=== PATIENT | male | born 1975 | race American Indian/Alaskan Native ===

== ENCOUNTER 2016-09-20 12:49 | Emergency (ER) | payer MEDICARE ==
[2016-09-20 13:35] LABS: Basophils % (Auto) 1.6 % (0.0-1.8); Eosinophils % (Auto) 4.6 % (0.0-4.3); Hemoglobin 14.3 gm/dl (11.8-15.2); Mean Corpuscular HGB Conc 34 % (32-34); Mean Corpuscular Hemoglobin 31 pg (28-32); Mean Corpuscular Volume 91 fl (84-94); Red Blood Count 4.63 M/mm3 (3.65-5.03); Red Cell Distribution Width 14.7 % (13.2-15.2)
[2016-09-20 13:37] LABS: Platelet Count 129 K/mm3 (140-440)
[2016-09-20 13:46] LABS: Anion Gap 15 mmol/L; BUN/Creatinine Ratio 11.53; Blood Urea Nitrogen 15 mg/dL (9-20); Calcium 8.7 mg/dL (8.4-10.2); Carbon Dioxide 28 mmol/L (22-30); Chloride 96.8 mmol/L (98-107); Glucose 97 mg/dL (75-100); Potassium 3.2 mmol/L (3.6-5.0); Sodium 137 mmol/L (137-145)
[2016-09-20] MEDS ORDERED: COREG PO ONE (14:08)
--- NOTE | 2016-09-20 14:24 | XRay Report ---
CHEST 2 VIEWS INDICATION: Shortness of breath. COMPARISON: 04/08/2016 FINDINGS: PA and lateral chest radiographs demonstrate improved early congestive appearance with lung markings less prominent. Now normal cardiomediastinal silhouette as well. No large pleural effusions or overt CHF. Minimal fluid or thickening along the major fissures may again be present. Intact bones. CONCLUSION: Interval radiographic improvement without significant acute chest process, as described. Please correlate. Thank you for the opportunity to participate in this patient's care.
[2016-09-20] MEDS ORDERED: PROCARDIA XL PO ONE (15:00)
[2016-09-20] MEDS ORDERED: TORADOL IM ONE (15:32)
--- NOTE | 2016-09-20 15:55 | Admit Criteria Form ---
<JOHN THOMAS - Last Filed: 09/20/16 15:54> Admission Criteria Documentation: HYPERTENSION Clinical Indications for Admission to Inpatient Care ( Place "X" for any and all applicable criteria): Admission is indicated for ANY ONE of the following(1)(2)(3)(4): [ ]I. Hypertensive emergency, with evidence of acute and progressing target organ disease as indicated by ANY ONE of the following: [ ]a) Hypertensive encephalopathy (eg, confusion, altered mental status) [ ]b) Cerebral infarction [ ]c) Intracranial hemorrhage [ ]d) Myocardial ischemia or infarction [ ]e) Pulmonary edema [ ]f) Aortic dissection [ ]g) Seizure [ ]h) Acute renal insufficiency [ ]i) Papilledema [ ]j) Microangiopathic hemolytic anemia [ ]II. Adrenergic crisis (eg, severe hypertension due to pheochromocytoma crisis, cocaine or amphetamine intoxication, or clonidine withdrawal) [X]III. Severe hypertension (SBP greater than 180 mmHg or DBP greater than 110 mmHg or greater than the 95th percentile for age, gender, and height in pediatric patients) that cannot be controlled (eg, to SBP less than 160 mmHg and DBP less than 100 mmHg in adults) by treatment with oral medication in emergency department or observation care Extended stay beyond goal length of stay may be needed for(11)(12)(13): [ ]a) Persistent hypertensive encephalopathy [ ]b) Continuation of pulmonary edema [ ]c) Recurring or persistent severe hypertension [ ]d) Target organ damage (eg, angina, stroke, aortic dissection) [ ]e) Associated renal insufficiency The original [employer] content created by [employer] has been revised. The portions of the content which have been revised are identified through the use of italic text or in bold, and [employer] [facility] [employer] has neither reviewed nor approved the modified material. All other unmodified content is copyright [employer]. Please see references footnoted in the original [employer] edition 2016 <RODERICK LEÓN - Last Filed: 09/20/16 16:53> Admission Criteria Met: No
[2016-09-20] MEDS ORDERED: NORMODYNE IV ONE ×2 (16:31→19:08)
--- NOTE | 2016-09-20 16:35 | XRay Report ---
LEFT KNEE: History: Knee pain. The bony architecture is intact without evidence of fracture or dislocation. No significant soft tissue abnormality is seen. IMPRESSION: Normal left knee.
--- NOTE | 2016-09-20 16:57 | Emergency Department Report ---
ED Shortness of Breath HPI - General Chief Complaint: Dyspnea/Respdistress Stated Complaint: SARAI/LT KNEE PAIN Time Seen by Provider: 09/20/16 15:11 Source: patient Mode of arrival: Ambulatory Limitations: No Limitations - History of Present Illness MD Complaint: shortness of breath, cough -: Gradual Severity: mild Pain Scale: 2 Quality: dull Consistency: intermittent Worsens With: nothing Known History Of: COPD, congestive heart failure Context: recent URI Associated Symptoms: denies other symptoms, polydipsia - Related Data Home Oxygen Therapy: No Home Medications Medication Instructions Recorded Confirmed Last Taken diphenhydrAMINE [Benadryl CAP] 25 mg PO QHS PRN 09/20/16 09/20/16 09/19/16 Previous Rx's Medication Instructions Recorded Last Taken Type ALPRAZolam [Xanax TAB] 0.125 mg PO Q8H PRN #30 tablet 04/11/16 09/19/16 Rx Aspirin [Aspirin TAB] 325 mg PO QDAY #30 tablet 04/11/16 09/19/16 Rx Bupropion HCl [Wellbutrin XL] 300 mg PO QAM #30 tab.er.24h 04/11/16 09/19/16 Rx Carvedilol [Coreg] 12.5 mg PO BID #60 tablet 04/11/16 09/19/16 Rx Lisinopril [Zestril TAB] 40 mg PO QDAY #30 tablet 04/11/16 09/19/16 Rx NIFEdipine XL [Procardia Xl] 60 mg PO QDAY #30 tablet 04/11/16 09/19/16 Rx Pantoprazole [Protonix TAB] 40 mg PO QDAY #30 tablet 04/11/16 09/19/16 Rx Potassium Chloride [K-Dur] 20 meq PO QDAY #30 tablet 04/11/16 09/19/16 Rx Trazodone HCl [traZODone] 300 mg PO QHS #30 tablet 04/11/16 09/19/16 Rx ALBUTEROL NEB's [Proventil 0.083% 2.5 mg IH Q3H PRN #30 nebu 09/20/16 Unknown Rx NEBS] Diclofenac Potassium 50 mg PO BID #14 tablet 09/20/16 Unknown Rx Ipratropium/Albuterol Sulfate 1 ampul IH BIDRT #30 ampul.neb 09/20/16 Unknown Rx [Duoneb 0.5 mg-3 mg/3 ml Soln] Allergies Allergy/AdvReac Type Severity Reaction Status Date / Time No Known Allergies Allergy Unverified 04/08/16 12:08 ED Review of Systems ROS: Stated complaint: SARAI/LT KNEE PAIN Other details as noted in HPI Comment: All other systems reviewed and negative ED Past Medical Hx - Past Medical History Previous Medical History?: Yes Hx Hypertension: Yes Hx Heart Attack/AMI: Yes Hx Congestive Heart Failure: Yes Hx GERD: Yes Hx Psychiatric Treatment: Yes (BIPOLAR / ANXIETY / DEPRESSION) Hx Asthma: Yes Additional medical history: SLEEP APNEA - Surgical History Past Surgical History?: Yes Additional Surgical History: CYST REMOVED FROM CHEST. HERNIA REPAIR (BABY) - Social History Smoking Status: Current Every Day Smoker Substance Use Type: Prescribed - Medications Home Medications: Home Medications Medication Instructions Recorded Confirmed Last Taken Type ALPRAZolam [Xanax TAB] 0.125 mg PO Q8H PRN #30 tablet 04/11/16 09/20/16 Rx Aspirin [Aspirin TAB] 325 mg PO QDAY #30 tablet 04/11/16 09/20/16 09/19/16 Rx Bupropion HCl [Wellbutrin XL] 300 mg PO QAM #30 tab.er.24h 04/11/16 09/20/16 Rx Carvedilol [Coreg] 12.5 mg PO BID #60 tablet 04/11/16 09/20/16 09/19/16 Rx Lisinopril [Zestril TAB] 40 mg PO QDAY #30 tablet 04/11/16 09/20/16 09/19/16 Rx NIFEdipine XL [Procardia Xl] 60 mg PO QDAY #30 tablet 04/11/16 09/20/16 Rx Pantoprazole [Protonix TAB] 40 mg PO QDAY #30 tablet 04/11/16 09/20/16 09/19/16 Rx Potassium Chloride [K-Dur] 20 meq PO QDAY #30 tablet 04/11/16 09/20/16 09/19/16 Rx Trazodone HCl [traZODone] 300 mg PO QHS #30 tablet 04/11/16 09/20/16 09/19/16 Rx ALBUTEROL NEB's [Proventil 0.083% 2.5 mg IH Q3H PRN #30 nebu 09/20/16 Unknown Rx NEBS] Diclofenac Potassium 50 mg PO BID #14 tablet 09/20/16 Unknown Rx Ipratropium/Albuterol Sulfate 1 ampul IH BIDRT #30 ampul.neb 09/20/16 Unknown Rx [Duoneb 0.5 mg-3 mg/3 ml Soln] diphenhydrAMINE [Benadryl CAP] 25 mg PO QHS PRN 09/20/16 09/20/16 09/19/16 History ED Physical Exam - General Limitations: No Limitations General appearance: alert, in no apparent distress - Head Head exam: Present: atraumatic, normocephalic - Eye Eye exam: Present: normal appearance - ENT ENT exam: Present: mucous membranes moist - Neck Neck exam: Present: normal inspection - Respiratory Respiratory exam: Present: normal lung sounds bilaterally. Absent: respiratory distress, wheezes, rales, rhonchi, stridor, chest wall tenderness, accessory muscle use, decreased breath sounds - Cardiovascular Cardiovascular Exam: Present: regular rate, normal rhythm. Absent: systolic murmur, diastolic murmur, rubs, gallop - GI/Abdominal GI/Abdominal exam: Present: soft, normal bowel sounds - Rectal Rectal exam: Present: deferred - Extremities Exam Extremities exam: Present: normal inspection - Back Exam Back exam: Present: normal inspection - Neurological Exam Neurological exam: Present: alert, oriented X3 - Psychiatric Psychiatric exam: Present: normal affect, normal mood - Skin Skin exam: Present: warm, dry, intact, normal color. Absent: rash ED Course Vital Signs 09/20/16 09/20/16 09/20/16 13:02 14:54 15:18 Temperature 98.2 F 98.2 F 98.7 F Pulse Rate 87 76 80 Respiratory 20 20 18 Rate Blood Pressure 193/133 194/135 Blood Pressure 211/132 [Left] O2 Sat by Pulse 96 95 100 Oximetry 09/20/16 09/20/16 15:28 15:34 Temperature Pulse Rate 80 Respiratory Rate Blood Pressure 211/132 Blood Pressure [Left] O2 Sat by Pulse 99 Oximetry ED Medical Decision Making - Lab Data Result diagrams: 09/20/16 13:12 09/20/16 13:12 - EKG Data -: EKG Interpreted by Me EKG shows normal: sinus rhythm - EKG Data Interpretation: no acute changes - Radiology Data Radiology results: report reviewed, image reviewed - Medical Decision Making patient doing well, his main complain is left knee pain , xray is negative, bnp normal and cxr better compare to prior, will dc and follow up as needed with PCP Critical care attestation.: If time is entered above; I have spent that time in minutes in the direct care of this critically ill patient, excluding procedure time. ED Disposition Clinical Impression: Difficulty breathing, Knee pain, chronic Disposition: DISCHARGED TO HOME OR SELFCARE Is pt being admited?: No Does the pt Need Aspirin: No Condition: Good Prescriptions: ALBUTEROL NEB's [Proventil 0.083% NEBS] 2.5 mg IH Q3H PRN #30 nebu PRN Reason: Shortness Of Breath Diclofenac Potassium 50 mg PO BID #14 tablet Ipratropium/Albuterol Sulfate [Duoneb 0.5 mg-3 mg/3 ml Soln] 1 ampul IH BIDRT # 30 ampul.neb Referrals: PRIMARY CARE, [Primary Care Provider] - 3-5 Days Forms: Work/School Release Form(ED) Time of Disposition: 18:43
[2016-09-20 20:49] VITALS: BP 177/90
== END 2016-09-20 20:40 | disposition home or self-care (01) ==
LOC: ED 12:49
DX: R06.02 Shortness of breath (principal); M25.562 Pain in left knee; G89.29 Other chronic pain; I10 Essential (primary) hypertension; I25.2 Old myocardial infarction; I50.9 Heart failure, unspecified; K21.9 Gastro-esophageal reflux disease without esophagitis; F31.9 Bipolar disorder, unspecified; J45.909 Unspecified asthma, uncomplicated; F17.200 Nicotine dependence, unspecified, uncomplicated
CPT/HCPCS: 36415; 71020; 73562; 80048; 83880; 84484; 85025; 93005; 93010; 93971; 96372; 96374; 99285; J1885

== ENCOUNTER 2016-09-21 03:12 | Emergency (ER) | payer MEDICARE ==
[2016-09-21] MEDS ORDERED: CATAPRES PO ONE (03:30)
[2016-09-21 03:55] LABS: Basophils % (Auto) 1.2 % (0.0-1.8); Eosinophils % (Auto) 4.1 % (0.0-4.3); Hematocrit 43.3 % (35.5-45.6); Hemoglobin 14.5 gm/dl (11.8-15.2); Mean Corpuscular HGB Conc 34 % (32-34); Mean Corpuscular Hemoglobin 30 pg (28-32); Mean Corpuscular Volume 90 fl (84-94); Red Blood Count 4.79 M/mm3 (3.65-5.03); Red Cell Distribution Width 14.5 % (13.2-15.2); White Blood Count 3.6 K/mm3 (4.5-11.0)
[2016-09-21 04:19] LABS: Platelet Count 127 K/mm3 (140-440)
[2016-09-21 04:20] LABS: Anion Gap 19 mmol/L; BUN/Creatinine Ratio 10.76; Blood Urea Nitrogen 14 mg/dL (9-20); Calcium 8.7 mg/dL (8.4-10.2); Carbon Dioxide 25 mmol/L (22-30); Chloride 98.6 mmol/L (98-107); Glucose 85 mg/dL (75-100); Potassium 3.3 mmol/L (3.6-5.0); Sodium 139 mmol/L (137-145)
[2016-09-21 04:48] LABS: Urine Drugs of Abuse Note Disclamer
[2016-09-21 04:55] LABS: Bilirubin,Urine NEG (Negative); Blood,Urine NEG (Negative); Ketones,Urine NEG (Negative); Leukocyte Esterase,Urine NEG (Negative); Mucus,Urine FEW /HPF; Nitrite,Urine NEG (Negative); Urobilinogen,Urine < 2.0 mg/dL (<2.0)
--- NOTE | 2016-09-21 09:02 | Emergency Department Report ---
ED Psych HPI - General Chief Complaint: Psych Stated Complaint: SUICIDAL Time Seen by Provider: 09/21/16 08:01 Source: patient Mode of arrival: Ambulatory - History of Present Illness Initial Comments: Pt is a 41-year-old homeless male with a history of depression who presents with suicidal ideations. Patient reports he does take Wellbutrin daily last dose was 2 days ago and today he came in reporting dealings of depression, suicidal, with plan to hurt himself by cutting himself. Otherwise no fevers, chills, headaches, nausea, vomiting, diarrhea, shortness of breath, chest pain, abdominal pain, trauma, sick contacts, hallucinations, delusions, or positional firearms, or history of illicit drug abuse. MD Complaint: suicidal ideation, feels depressed - Related Data Previous Rx's Medication Instructions Recorded Last Taken Type ALPRAZolam [Xanax TAB] 0.125 mg PO Q8H PRN #30 tablet 04/11/16 09/19/16 Rx Aspirin [Aspirin TAB] 325 mg PO QDAY #30 tablet 04/11/16 09/19/16 Rx Bupropion HCl [Wellbutrin XL] 300 mg PO QAM #30 tab.er.24h 04/11/16 09/19/16 Rx Carvedilol [Coreg] 12.5 mg PO BID #60 tablet 04/11/16 09/19/16 Rx Lisinopril [Zestril TAB] 40 mg PO QDAY #30 tablet 04/11/16 09/19/16 Rx NIFEdipine XL [Procardia Xl] 60 mg PO QDAY #30 tablet 04/11/16 09/19/16 Rx Pantoprazole [Protonix TAB] 40 mg PO QDAY #30 tablet 04/11/16 09/19/16 Rx ALBUTEROL NEB's [Proventil 0.083% 2.5 mg IH Q3H PRN #30 nebu 09/20/16 Unknown Rx NEBS] Diclofenac Potassium 50 mg PO BID #14 tablet 09/20/16 Unknown Rx Ipratropium/Albuterol Sulfate 1 ampul IH BIDRT #30 ampul.neb 09/20/16 Unknown Rx [Duoneb 0.5 mg-3 mg/3 ml Soln] Allergies Allergy/AdvReac Type Severity Reaction Status Date / Time No Known Allergies Allergy Unverified 04/08/16 12:08 ED Review of Systems ROS: Stated complaint: SUICIDAL Other details as noted in HPI Comment: All other systems reviewed and negative ED Past Medical Hx - Past Medical History Previous Medical History?: Yes Hx Hypertension: Yes Hx Heart Attack/AMI: Yes Hx Congestive Heart Failure: Yes Hx GERD: Yes Hx Psychiatric Treatment: Yes (BIPOLAR / ANXIETY / DEPRESSION) Hx Asthma: Yes Additional medical history: SLEEP APNEA - Surgical History Past Surgical History?: Yes Additional Surgical History: CYST REMOVED FROM CHEST. HERNIA REPAIR (BABY) - Social History Smoking Status: Current Every Day Smoker Substance Use Type: None - Medications Home Medications: Home Medications Medication Instructions Recorded Confirmed Last Taken Type ALPRAZolam [Xanax TAB] 0.125 mg PO Q8H PRN #30 tablet 04/11/16 09/21/16 Rx Aspirin [Aspirin TAB] 325 mg PO QDAY #30 tablet 04/11/16 09/21/16 09/19/16 Rx Bupropion HCl [Wellbutrin XL] 300 mg PO QAM #30 tab.er.24h 04/11/16 09/21/16 Rx Carvedilol [Coreg] 12.5 mg PO BID #60 tablet 04/11/16 09/21/16 09/19/16 Rx Lisinopril [Zestril TAB] 40 mg PO QDAY #30 tablet 04/11/16 09/21/16 09/19/16 Rx NIFEdipine XL [Procardia Xl] 60 mg PO QDAY #30 tablet 04/11/16 09/21/16 Rx Pantoprazole [Protonix TAB] 40 mg PO QDAY #30 tablet 04/11/16 09/21/16 09/19/16 Rx ALBUTEROL NEB's [Proventil 0.083% 2.5 mg IH Q3H PRN #30 nebu 09/20/16 09/21/16 Unknown Rx NEBS] Diclofenac Potassium 50 mg PO BID #14 tablet 09/20/16 09/21/16 Unknown Rx Ipratropium/Albuterol Sulfate 1 ampul IH BIDRT #30 ampul.neb 09/20/16 09/21/16 Unknown Rx [Duoneb 0.5 mg-3 mg/3 ml Soln] ED Physical Exam - General Limitations: No Limitations General appearance: alert, in no apparent distress - Head Head exam: Present: atraumatic, normocephalic - Eye Eye exam: Present: normal appearance - ENT ENT exam: Present: mucous membranes moist - Neck Neck exam: Present: normal inspection - Respiratory Respiratory exam: Present: normal lung sounds bilaterally. Absent: respiratory distress - Cardiovascular Cardiovascular Exam: Present: regular rate, normal rhythm. Absent: systolic murmur, diastolic murmur, rubs, gallop - GI/Abdominal GI/Abdominal exam: Present: soft, normal bowel sounds - Rectal Rectal exam: Present: deferred - Extremities Exam Extremities exam: Present: normal inspection - Back Exam Back exam: Present: normal inspection - Neurological Exam Neurological exam: Present: alert, oriented X3 - Psychiatric Psychiatric exam: Present: normal affect, normal mood - Skin Skin exam: Present: warm, dry, intact, normal color. Absent: rash ED Course Vital Signs 09/21/16 09/21/16 09/21/16 03:16 03:34 05:53 Temperature 98.0 F Pulse Rate 79 79 73 Respiratory 20 20 Rate Blood Pressure 201/129 201/129 149/99 Blood Pressure [Right] O2 Sat by Pulse 100 98 Oximetry 09/21/16 09/21/16 09:00 10:00 Temperature 98.2 F Pulse Rate 74 Respiratory 18 18 Rate Blood Pressure Blood Pressure 156/82 [Right] O2 Sat by Pulse 98 98 Oximetry ED Medical Decision Making - Lab Data Result diagrams: 09/21/16 03:29 09/21/16 03:29 - Medical Decision Making Patient made 1013 after initial evaluation Psych eval appreciated. Pt to remain 1013 and to be transferred to outpaient psych facility Critical care attestation.: If time is entered above; I have spent that time in minutes in the direct care of this critically ill patient, excluding procedure time. ED Disposition Clinical Impression: Depression, Suicidal behavior Disposition: DC/TX PSY HOSP/PSY UNIT Is pt being admited?: No Condition: Stable Referrals: PRIMARY CARE, [Primary Care Provider] - 3-5 Days
[2016-09-21 10:34] VITALS: BP 156/82
--- NOTE | 2016-09-21 19:24 | Consultation ---
History of Present Illness - Reason for Consult Consult date: 09/21/16 Reason for consult: psychiatric evaluation - Chief Complaint Chief complaint: "suicidal" 41 yearold black male seen in the ER for psychiatric evaluation. He moved away from his family in [place] and has been living in his car. He reports depression has been escalating and suicidal thoughts have increased and he has a plan to cut himself. He has been off his psych meds x 1 month. He states he has been put down all his life because of his learning disabilities and that's part of the reason he left his family. He denies HI. Denies AVH. Denies alcohol or illicit substance use. Medications and Allergies Allergies Allergy/AdvReac Type Severity Reaction Status Date / Time No Known Allergies Allergy Unverified 04/08/16 12:08 Home Medications Medication Instructions Recorded Confirmed Last Taken Type ALPRAZolam [Xanax TAB] 0.125 mg PO Q8H PRN #30 tablet 04/11/16 09/21/16 Rx Aspirin [Aspirin TAB] 325 mg PO QDAY #30 tablet 04/11/16 09/21/16 09/19/16 Rx Bupropion HCl [Wellbutrin XL] 300 mg PO QAM #30 tab.er.24h 04/11/16 09/21/16 Rx Carvedilol [Coreg] 12.5 mg PO BID #60 tablet 04/11/16 09/21/16 09/19/16 Rx Lisinopril [Zestril TAB] 40 mg PO QDAY #30 tablet 04/11/16 09/21/16 09/19/16 Rx NIFEdipine XL [Procardia Xl] 60 mg PO QDAY #30 tablet 04/11/16 09/21/16 Rx Pantoprazole [Protonix TAB] 40 mg PO QDAY #30 tablet 04/11/16 09/21/16 09/19/16 Rx ALBUTEROL NEB's [Proventil 0.083% 2.5 mg IH Q3H PRN #30 nebu 09/20/16 09/21/16 Unknown Rx NEBS] Diclofenac Potassium 50 mg PO BID #14 tablet 09/20/16 09/21/16 Unknown Rx Ipratropium/Albuterol Sulfate 1 ampul IH BIDRT #30 ampul.neb 09/20/16 09/21/16 Unknown Rx [Duoneb 0.5 mg-3 mg/3 ml Soln] Past psychiatric history - Past Medical History Past Medical History: GERD, hypertension, other (sleep apnea) Past Surgical History: hernia repair - past Psychiatric treatment and history Psych: Depression psychiatric treatment history: reports being diagnosed with bipolar disorder previously but denies symptoms of dejah in the past Usual medications are wellbutrin and trazodone. - Social History Social history: other (homeless) Mental Status Exam - Vital signs Last Vital Signs Temp 98.2 F 09/21/16 10:00 Pulse 74 09/21/16 10:00 Resp 18 09/21/16 10:00 BP 156/82 09/21/16 10:00 Pulse Ox 98 09/21/16 10:00 - Exam Orientation: time, place, person Affect: depressed Mood: congruent with affect Thought content: other (SI, no HI) Thought Process: Intact Perceptions: none Speech: normal rate and pattern Concentration: focused Motor activity: normal Level of consciousness: alert Memory: Intact Sleep Symptoms: Difficulty Falling Asleep Appetite: decreased Interaction: cooperative Results Result Diagrams: 09/21/16 03:29 09/21/16 03:29 Abnormal lab results 09/21/16 09/21/16 Range/Units 03:29 03:29 WBC 3.6 L (4.5-11.0) K/mm3 Plt Count 127 L (140-440) K/mm3 Kinney % (Auto) 13.4 H (0.0-7.3) % Lymph # 1.0 L (1.2-5.4) K/mm3 Potassium 3.3 L (3.6-5.0) mmol/L All other labs normal. Assessment and Plan Assessment and plan: Impression: Suicidal ideation Major depressive disorder r/o bipolar disorder Recommendation: Continue 1013 Transfer to inpatient psychiatric facility
== END 2016-09-21 20:33 ==
LOC: ED 03:12
DX: F32.9 Major depressive disorder, single episode, unspecified (principal); R45.851 Suicidal ideations; I10 Essential (primary) hypertension; I25.2 Old myocardial infarction; I50.9 Heart failure, unspecified; F41.9 Anxiety disorder, unspecified; J45.909 Unspecified asthma, uncomplicated; F17.200 Nicotine dependence, unspecified, uncomplicated; Z79.82 Long term (current) use of aspirin
CPT/HCPCS: 36415; 80048; 80307; 81001; 85025; 99285; G0480; 80320

== ENCOUNTER 2017-11-25 18:09 | Emergency (ER) | payer MEDICARE ==
[2017-11-25 19:11] LABS: Basophils % (Auto) 0.9 % (0.0-1.8); Eosinophils # (Auto) 0.1 K/mm3 (0.0-0.4); Hematocrit 39.5 % (35.5-45.6); Hemoglobin 13.7 gm/dl (11.8-15.2); Lymphocytes # (Auto) 0.8 K/mm3 (1.2-5.4); Mean Corpuscular HGB Conc 35 % (32-34); Mean Corpuscular Hemoglobin 32 pg (28-32); Mean Corpuscular Volume 91 fl (84-94); Monocytes # (Auto) 0.6 K/mm3 (0.0-0.8); Monocytes % (Auto) 15.3 % (0.0-7.3); Red Blood Count 4.35 M/mm3 (3.65-5.03); Red Cell Distribution Width 15.8 % (13.2-15.2)
[2017-11-25 19:12] LABS: Bilirubin,Urine NEG (Negative); Blood,Urine NEG (Negative); Color,Urine Yellow (Yellow); Mucus,Urine FEW /HPF
[2017-11-25 19:15] LABS: Platelet Count 156 K/mm3 (140-440)
[2017-11-25 19:17] LABS: Amphetamine Screen,Urine PRESUMPTIVE NEGATIVE; Benzodiazepines Screen,Urine PRESUMPTIVE NEGATIVE; Cannabinoid Screen,Urine PRESUMPTIVE NEGATIVE; Cocaine Screen,Urine PRESUMPTIVE NEGATIVE; Methadone Screen,Urine PRESUMPTIVE NEGATIVE; Opiate Screen,Urine PRESUMPTIVE NEGATIVE
[2017-11-25 19:31] LABS: Albumin 4.1 g/dL (3.9-5); Calcium 9.3 mg/dL (8.4-10.2)
--- NOTE | 2017-11-25 22:36 | Emergency Department Report ---
ED Psych HPI - General Chief Complaint: Psych Stated Complaint: SUCIDAL Time Seen by Provider: 11/25/17 21:51 Source: patient, EMS, old records reviewed (creatine range 1.4-1.8, typically hypokalemic) Mode of arrival: Ambulatory Limitations: No Limitations - History of Present Illness Initial Comments: 42-year-old male with past medical history hypertension, bipolar disorder, asthma, schizophrenia, other illicit medical conditions (see triage) presents to the hospital with complaints of suicidal ideation since this A that his girlfriend was cheating on him. Patient has a history of suicidal ideation "a long time ago" as an adult. He's been off all his medications including his blood pressure medication and psychiatric medication for the past 2 months ago lack of insurance. He denies any physical complaints including headache, chest pain, and shortness of breath. Primary care doctor is Dr. Malave indicated. Psychiatrist is [facility] Med record review, pt was here in September with SI - Related Data Home Medications Medication Instructions Recorded Confirmed Last Taken buPROPion [Wellbutrin] 40 mg PO BID 11/26/17 11/26/17 Unknown traZODone [Desyrel] 300 mg PO 11/26/17 Unknown Previous Rx's Medication Instructions Recorded Last Taken Type ALPRAZolam [Xanax TAB] 0.125 mg PO Q8H PRN #30 tablet 04/11/16 09/19/16 Rx Bupropion HCl [Wellbutrin XL] 300 mg PO QAM #30 tab.er.24h 04/11/16 09/19/16 Rx Lisinopril [Zestril TAB] 40 mg PO QDAY #30 tablet 04/11/16 09/19/16 Rx ALBUTEROL NEB's [Proventil 0.083% 2.5 mg IH Q3H PRN #30 nebu 09/20/16 Unknown Rx NEBS] Acetaminophen [Acetaminophen TAB] 650 mg PO Q4H PRN #30 tablet 09/25/17 Unknown Rx Allergies Allergy/AdvReac Type Severity Reaction Status Date / Time No Known Allergies Allergy Unverified 04/08/16 12:08 ED Review of Systems ROS: Stated complaint: SUCIDAL Other details as noted in HPI Comment: All other systems reviewed and negative ED Past Medical Hx - Past Medical History Hx Hypertension: Yes Hx Heart Attack/AMI: Yes Hx Congestive Heart Failure: Yes Hx Diabetes: No Hx GERD: Yes Hx Psychiatric Treatment: Yes (BIPOLAR / ANXIETY / DEPRESSION) Hx Asthma: Yes Additional medical history: SLEEP APNEA - Surgical History Additional Surgical History: CYST REMOVED FROM CHEST. HERNIA REPAIR (BABY) - Social History Smoking Status: Current Every Day Smoker Substance Use Type: None - Medications Home Medications: Home Medications Medication Instructions Recorded Confirmed Last Taken Type ALPRAZolam [Xanax TAB] 0.125 mg PO Q8H PRN #30 tablet 04/11/16 09/23/17 Rx Bupropion HCl [Wellbutrin XL] 300 mg PO QAM #30 tab.er.24h 04/11/16 09/23/17 Rx Lisinopril [Zestril TAB] 40 mg PO QDAY #30 tablet 04/11/16 11/26/17 09/19/16 Rx ALBUTEROL NEB's [Proventil 0.083% 2.5 mg IH Q3H PRN #30 nebu 09/20/16 09/23/17 Unknown Rx NEBS] Acetaminophen [Acetaminophen TAB] 650 mg PO Q4H PRN #30 tablet 09/25/17 Unknown Rx buPROPion [Wellbutrin] 40 mg PO BID 11/26/17 11/26/17 Unknown History traZODone [Desyrel] 300 mg PO 11/26/17 Unknown History ED Physical Exam - General Limitations: Altered Mental Status - Other Other exam information: General: No limitations, patient is alert in no acute distress Head exam: Atraumatic, normocephalic Eyes exam: Normal appearance, pupils equal reactive to light, extraocular movements intact ENT: Moist mucous membrane, normal oropharynx Neck exam: Normal inspection, full range of motion, no meningismus nontender Respiratory exam: Clear to auscultation bilateral, no wheezes, rales, crackles Cardiovascular: Normal rate and rhythm, normal heart sounds Abdomen: Soft, nondistended, and nontender, with normal bowel sounds, no rebound, or guarding Extremity: Full range of motion normal inspection no deformity Back: Normal Inspection, full range of motion, no tenderness Neurologic: Alert, oriented x3, cranial nerves intact, no motor or sensory deficit Psychiatric: normal affect, normal mood Skin: Warm, dry, intact ED Course Vital Signs 11/25/17 11/25/17 18:43 23:13 Temperature 98.2 F 97.9 F Pulse Rate 74 71 Respiratory 20 Rate Blood Pressure 219/135 Blood Pressure 219/131 [Left] O2 Sat by Pulse 98 Oximetry - Reevaluation(s) Reevaluation #1: 11/26/17 04:58 bp 140/77 hr 60 rr 17 sat 95% ra ED Medical Decision Making - Lab Data Result diagrams: 11/25/17 18:53 11/25/17 18:53 Lab Results 11/25/17 11/25/17 11/25/17 Range/Units 18:53 18:53 Unknown WBC 4.1 L (4.5-11.0) K/mm3 RBC 4.35 (3.65-5.03) M/mm3 Hgb 13.7 (11.8-15.2) gm/dl Hct 39.5 (35.5-45.6) % MCV 91 (84-94) fl MCH 32 (28-32) pg MCHC 35 H (32-34) % RDW 15.8 H (13.2-15.2) % Plt Count 156 (140-440) K/mm3 Lymph % (Auto) 19.0 (13.4-35.0) % [place] % (Auto) 15.3 H (0.0-7.3) % Eos % (Auto) 2.0 (0.0-4.3) % Baso % (Auto) 0.9 (0.0-1.8) % Lymph # 0.8 L (1.2-5.4) K/mm3 [place] # 0.6 (0.0-0.8) K/mm3 Eos # 0.1 (0.0-0.4) K/mm3 Baso # 0.0 (0.0-0.1) K/mm3 Seg Neutrophils % 62.8 (40.0-70.0) % Seg Neutrophils # 2.6 (1.8-7.7) K/mm3 Sodium 140 (137-145) mmol/L Potassium 3.2 L (3.6-5.0) mmol/L Chloride 100.8 (98-107) mmol/L Carbon Dioxide 27 (22-30) mmol/L Anion Gap 15 mmol/L BUN 13 (9-20) mg/dL Creatinine 1.6 H (0.8-1.5) mg/dL Estimated GFR 57 ml/min BUN/Creatinine Ratio 8 % Glucose 92 (75-100) mg/dL Calcium 9.3 (8.4-10.2) mg/dL Total Bilirubin 0.70 (0.1-1.2) mg/dL AST 15 (5-40) units/L ALT 9 (7-56) units/L Alkaline Phosphatase 122 (35-129) units/L Total Protein 7.9 (6.3-8.2) g/dL Albumin 4.1 (3.9-5) g/dL Albumin/Globulin Ratio 1.1 % Urine Color Yellow (Yellow) Urine Turbidity Clear (Clear) Urine pH 6.0 (5.0-7.0) Ur Specific [place] 1.023 (1.003-1.030) Urine Protein 100 mg/dl (Negative) mg/dL Urine Glucose (UA) Neg (Negative) mg/dL Urine Ketones Neg (Negative) mg/dL Urine Blood Neg (Negative) Urine Nitrite Neg (Negative) Urine Bilirubin Neg (Negative) Urine Urobilinogen 2.0 (<2.0) mg/dL Ur Leukocyte Esterase Neg (Negative) Urine WBC (Auto) 3.0 (0.0-6.0) /HPF Urine RBC (Auto) 4.0 (0.0-6.0) /HPF U Epithel Cells (Auto) 2.0 (0-13.0) /HPF Urine Mucus Few /HPF Urine Opiates Screen Urine Methadone Screen Ur Barbiturates Screen Ur Phencyclidine Scrn Ur Amphetamines Screen U Benzodiazepines Scrn Urine Cocaine Screen U Marijuana (THC) Screen Drugs of Abuse Note 11/25/17 Range/Units Unknown WBC (4.5-11.0) K/mm3 RBC (3.65-5.03) M/mm3 Hgb (11.8-15.2) gm/dl Hct (35.5-45.6) % MCV (84-94) fl MCH (28-32) pg MCHC (32-34) % RDW (13.2-15.2) % Plt Count (140-440) K/mm3 Lymph % (Auto) (13.4-35.0) % [place] % (Auto) (0.0-7.3) % Eos % (Auto) (0.0-4.3) % Baso % (Auto) (0.0-1.8) % Lymph # (1.2-5.4) K/mm3 [place] # (0.0-0.8) K/mm3 Eos # (0.0-0.4) K/mm3 Baso # (0.0-0.1) K/mm3 Seg Neutrophils % (40.0-70.0) % Seg Neutrophils # (1.8-7.7) K/mm3 Sodium (137-145) mmol/L Potassium (3.6-5.0) mmol/L Chloride (98-107) mmol/L Carbon Dioxide (22-30) mmol/L Anion Gap mmol/L BUN (9-20) mg/dL Creatinine (0.8-1.5) mg/dL Estimated GFR ml/min BUN/Creatinine Ratio % Glucose (75-100) mg/dL Calcium (8.4-10.2) mg/dL Total Bilirubin (0.1-1.2) mg/dL AST (5-40) units/L ALT (7-56) units/L Alkaline Phosphatase (35-129) units/L Total Protein (6.3-8.2) g/dL Albumin (3.9-5) g/dL Albumin/Globulin Ratio % Urine Color (Yellow) Urine Turbidity (Clear) Urine pH (5.0-7.0) Ur Specific [place] (1.003-1.030) Urine Protein (Negative) mg/dL Urine Glucose (UA) (Negative) mg/dL Urine Ketones (Negative) mg/dL Urine Blood (Negative) Urine Nitrite (Negative) Urine Bilirubin (Negative) Urine Urobilinogen (<2.0) mg/dL Ur Leukocyte Esterase (Negative) Urine WBC (Auto) (0.0-6.0) /HPF Urine RBC (Auto) (0.0-6.0) /HPF U Epithel Cells (Auto) (0-13.0) /HPF Urine Mucus /HPF Urine Opiates Screen Presumptive negative Urine Methadone Screen Presumptive negative Ur Barbiturates Screen Presumptive negative Ur Phencyclidine Scrn Presumptive negative Ur Amphetamines Screen Presumptive negative U Benzodiazepines Scrn Presumptive negative Urine Cocaine Screen Presumptive negative U Marijuana (THC) Screen Presumptive negative Drugs of Abuse Note Disclamer - Medical Decision Making other differential hypertensive emergency Patient is noncompliant with all meds for 2 months. Positive suicidal ideation. Asymptomatic hypertension with chronic renal insufficiency By mouth potassium and clonidine provided in ED Last known meds will be continued Patient is medically clear for psychiatric admission - Differential Diagnosis disorder, depression, schizophrenia, bipolar, medication noncompliance, hyp Critical Care Time: No Critical care attestation.: If time is entered above; I have spent that time in minutes in the direct care of this critically ill patient, excluding procedure time. ED Disposition Clinical Impression: Suicidal ideation, Bipolar disorder, Hypokalemia, CRI (chronic renal insufficiency), Noncompliance with medication regimen, Uncontrolled hypertension , Medical clearance for psychiatric admission Disposition: [id number]/TX-[id number] PSY HOSP/PSY UNIT Is pt being admited?: No Condition: Stable Time of Disposition: 23:41 (awaiting acceptance)
[2017-11-25] MEDS ORDERED: CATAPRES PO ONE (22:37)
[2017-11-25] MEDS ORDERED: K-DUR PO ONE (23:35)
[2017-11-26] MEDS ORDERED: DESYREL PO ONE ×2 (01:00→01:02)
[2017-11-26] MEDS ORDERED: ZESTRIL PO SCH (10:00)
--- NOTE | 2017-11-26 13:14 | Consultation ---
History of Present Illness - Reason for Consult Consult date: 11/26/17 Reason for consult: Mental Health Evaluation Requesting physician: MAURICIO PITTMAN - Chief Complaint Chief complaint: "Why did she have to cheat" - History of Present Psychiatric Illness 42 y.o. AA male presenting to the ER for SI's. This patient is known to me. Today the patient is calm and cooperative during the assessment. He stated that he found out that his was "cheating" on him. He stated that he felt betrayed and had no reason to live. He stated that she been together since high school. He stated having SI's in the past. He denies a suicide plan when asked. He stated wanting the SI's to "go away." He stated that he takes Wellbutrin and Trazodone. He stated that he have not taken his medications in months because he can't afford them at this time. He rate his depression 7/10, with 10 being the worse. He denies a poor appetite, but acknowledged erratic sleep "sometimes. " He denies recreational drug use and alcohol consumption (etoh). Medications and Allergies Allergies Allergy/AdvReac Type Severity Reaction Status Date / Time No Known Allergies Allergy Unverified 04/08/16 12:08 Home Medications Medication Instructions Recorded Confirmed Last Taken Type ALPRAZolam [Xanax TAB] 0.125 mg PO Q8H PRN #30 tablet 04/11/16 09/23/17 Rx Bupropion HCl [Wellbutrin XL] 300 mg PO QAM #30 tab.er.24h 04/11/16 09/23/17 Rx Lisinopril [Zestril TAB] 40 mg PO QDAY #30 tablet 04/11/16 11/26/17 09/19/16 Rx ALBUTEROL NEB's [Proventil 0.083% 2.5 mg IH Q3H PRN #30 nebu 09/20/16 09/23/17 Unknown Rx NEBS] Acetaminophen [Acetaminophen TAB] 650 mg PO Q4H PRN #30 tablet 09/25/17 Unknown Rx buPROPion [Wellbutrin] 40 mg PO BID 11/26/17 11/26/17 Unknown History traZODone [Desyrel] 300 mg PO 07/24/18 Unknown History Active Meds: Active Medications Lisinopril (Zestril) 40 mg PO QDAY LUKAS Last Admin: 11/26/17 09:59 Dose: 40 mg Past psychiatric history - Past Medical History Past Medical History: acute NE, GERD, hyperthyroidism, other (Sleep Apnea) Past Surgical History: No surgical history - past Psychiatric treatment and history psychiatric treatment history: Inpatient psy setting in the past. Denies a fam psy hx. - Social History Social history: Lives alone Mental Status Exam - Vital signs Last Vital Signs Temp 97.8 F 11/26/17 09:18 Pulse 70 11/26/17 09:18 Resp 18 11/26/17 09:18 BP 154/118 11/26/17 09:18 Pulse Ox 97 11/26/17 09:18 - Exam Narrative exam: MSE: Appearance: calm, cooperative Behavior: regular eye contact Speech: regular rate and tone Mood: "depressed" Affect: congruent to mood Thought Process: circumstantial Thought Content: denies HI's and AVH's Motor Activity: sitting up in bed Cognition: A/O x 3 Insight: variable Judgment: variable Results Result Diagrams: 11/25/17 18:53 11/25/17 18:53 Abnormal lab results 11/25/17 11/25/17 Range/Units 18:53 18:53 WBC 4.1 L (4.5-11.0) K/mm3 MCHC 35 H (32-34) % RDW 15.8 H (13.2-15.2) % [place] % (Auto) 15.3 H (0.0-7.3) % Lymph # 0.8 L (1.2-5.4) K/mm3 Potassium 3.2 L (3.6-5.0) mmol/L Creatinine 1.6 H (0.8-1.5) mg/dL All other labs normal. Assessment and Plan Assessment and plan: Impression: MDD, Severe Type. Today the patient is calm and cooperative during the assessment. DDx: R/O Bipolar DO Recommendation/Plan: Continue 1013 with pending placement to [facility]. Start Wellbutrin 150 mg PO daily for depression and Trazodone 50 mg PO HS for sleep. Discussed possible suicidality/medication induced dejah with patient reference antidepressants. Discussed generalized coping skills with patient.
[2017-11-26] MEDS ORDERED: DESYREL PO PRN (14:04)
[2017-11-26 14:51] VITALS: BP 144/70
[2017-11-26] MEDS ORDERED: WELLBUTRIN PO SCH (16:00)
== END 2017-11-26 16:27 ==
LOC: ED 18:09 → EEVIPCON 18:09 → ED 11-26 16:27
DX: F31.9 Bipolar disorder, unspecified (principal); R45.851 Suicidal ideations; E87.6 Hypokalemia; I12.9 Hypertensive chronic kidney disease with stage 1 through stage 4 chronic kidney disease, or unspecified chronic kidney disease; N18.9 Chronic kidney disease, unspecified; F41.9 Anxiety disorder, unspecified; K21.9 Gastro-esophageal reflux disease without esophagitis; J45.909 Unspecified asthma, uncomplicated; I50.9 Heart failure, unspecified; Z91.14 Patient's other noncompliance with medication regimen; F17.200 Nicotine dependence, unspecified, uncomplicated
CPT/HCPCS: 36415; 80053; 80307; 81001; 85025; 99285